=== PATIENT | female | born 1965 | race Two or more races ===

== ENCOUNTER 2016-08-24 10:55 | Emergency (ER) | payer MEDICAID, OTHER ==
[~2016-08-24] VITALS: Ht 162.6 cm; Wt 126.1 kg
[~2016-08-24 10:55] MED LIST: ATENOLOL50 MG ORAL; BENAZEPRIL HCL10 MG ORAL; CALCITRATE + V1 EACH PO; CALCIUM W/ VIT D PO; ROBAXIN500 MG PO; XANAX0.5 MG ORAL
[2016-08-24 12:03] LABS: APPEARANCE,URINE CLEAR; BASOPHILS % (AUTO) 1.7 % (0.0-2.0); EOSINOPHILS % (AUTO) 0.7 % (0.0-3.0); KETONES,URINE 3+ (NEGATIVE); LEUKOCYTE ESTERASE ,URINE NEGATIVE (NEGATIVE); LYMPHOCYTES % (AUTO) 22.6 % (20.0-45.0); MEAN CORPUSCULAR HEMOGLOBIN 31.4 PG (27.0-31.0); MEAN CORPUSCULAR HGB CONC 32.7 G/DL (32.0-36.0); MEAN CORPUSCULAR VOLUME 96 FL (80-99); MEAN PLATELET VOLUME 8.6 FL (6.5-10.1); MONOCYTES % (AUTO) 9.8 % (1.0-10.0); NEUTROPHILS % (AUTO) 65.3 % (45.0-75.0); NITRITE,URINE NEGATIVE (NEGATIVE); PH,URINE 6 (4.5-8.0); PLATELET COUNT 232 K/UL (150-450); PROTEIN,URINE NEGATIVE (NEGATIVE); RED BLOOD COUNT 5.03 M/UL (4.20-5.40); RED CELL DISTRIBUTION WIDTH 12.1 % (11.6-14.8); UROBILINOGEN,URINE NORMAL MG/DL (0.0-1.0); WHITE BLOOD COUNT 8.5 K/UL (4.8-10.8)
[2016-08-24 12:13] LABS: ALANINE AMINOTRANSFERASE 58 U/L (3-33); ALBUMIN/GLOBULIN RATIO 1.1 (1.0-2.7); ANION GAP 16 (5-15); ASPARTATE AMINO TRANSFERASE 58 U/L (5-40); CALCIUM 9.5 mg/dL (8.6-10.2); CARBON DIOXIDE 25 mEQ/L (20-30); CHLORIDE 92 mEQ/L (98-107); CREATININE 0.7 mg/dL (0.5-0.9); GLOMERULAR FILTRATION RATE > 60 mL/min (>60); HEMOLYSIS 7; POTASSIUM 4.2 mEQ/L (3.4-4.9); SODIUM 133 mEQ/L (135-145); TOTAL PROTEIN 7.7 g/dL (6.6-8.7); TROPONIN I < 0.30 ng/mL (<=0.30)
[2016-08-24 12:26] LABS: HEMOGLOBIN A1C 10.8 % (< 6.0)
[2016-08-24] MEDS ORDERED: metFORMIN 500mg tab ORAL STA (12:47)
[2016-08-24 13:10] VITALS: BP 121/49
[2016-08-24] MEDS ORDERED: METFORMIN HCL500 M1 ORAL (15:13)
[2016-08-24 15:19] VITALS: BP 121/43
[2016-08-24] MEDS ORDERED: ACCU CHEK SAFE MC (15:20)
[2016-08-24 15:22] VITALS: BP 121/43
--- NOTE | 2016-08-24 22:53 | Emergency Room Report ---
History of Present Illness General Chief Complaint: General Complaint Source: Patient Present Illness HPI Patient presents with elevated blood sugar (checked with 's machine). Recent polies. Anxious. Had been told by PMD that glucose is fine and A1C is normal within last 6 months. No chest pain, dyspnea, vomiting, diarrhea, nausea, headache. Slight change in vision with blurring. No fevers, dysuria. Treated for hypertension. Allergies: Coded Allergies: GENTAMICIN (Verified Allergy, Mild, Itching, 12/04/13) Patient History Past Medical History: see triage record Past Surgical History: other - parathyroidectomy Social History: Denies: alcohol use, smoking Social History Narrative Last Menstrual Period: irregular menstrual cycle D/C in May Now: No Reviewed Nursing Documentation: PMH: Agreed, PSxH: Agreed Nursing Documentation-PMH Past Medical History: No History, Except For Hx Hypertension: Yes Hx Cancer: No Hx Gastrointestinal Problems: Yes - gastritis History Of Psychiatric Problem: Yes - anxiety Hx Neurological Problems: Yes Hx Dizziness: Yes Review of Systems All Other Systems: negative except mentioned in HPI Physical Exam Vital Signs Date Time Temp Pulse Resp B/P Pulse Ox O2 Delivery O2 Flow Rate FiO2 08/24/16 11:06 98.8 85 14 167/79 98 Room Air Sp02 EP Interpretation: reviewed, normal General Appearance: normal inspection, alert, GCS 15, obese Head: normocephalic Eyes: bilateral eye PERRL, bilateral eye normal inspection ENT: moist mucus membranes Neck: supple Respiratory: lungs clear, normal breath sounds Cardiovascular #1: regular rate, rhythm, no edema Cardiovascular #2: 2+ radial (R) Gastrointestinal: non tender, soft, overweight Musculoskeletal: gait/station normal, normal range of motion, no calf tenderness, pelvis stable Neurologic: alert, oriented x3 - grossly normal neuro Psychiatric: anxious Skin: normal inspection, warm/dry Medical Decision Making Diagnostic Impression: Primary Impression: Diabetes mellitus, new onset Additional Impression: Obesity Qualified Codes: E66.9 - Obesity, unspecified ER Course The patient presents with hyperglycemia. Differential includes onset diabetes, occult infection, diabetic ketoacidosis. Patient has normal mentation at this time and denies any abdominal symptomatology. She is overweight. Evaluation with electrolytes, EKG, chest x-ray is undertaken. In addition Accu-Chek is high at this time and we need to start IV hydration.2 tabs TID X 2 days, 1 tab TID X 2 days, 1 tab BID X 2 days, 1 tab QD X 2 days the results of laboratory that she needs to be admitted. Glucose is elevated. We need to repeat this after the fluid bolus. He was better and metformin is started. The patient is not in diabetic ketoacidosis that time. Discussion about starting treatment, checking blood sugars and cautioned about hypoglycemia were discussed with the patient. He understands as her has diabetes. Also we discussed probably loss would have a significant impact on her insulin requirements. Discussed diabetic diet also. The patient is stable for outpatient observation and treatment. Laboratory Tests Test 08/24/16 11:40 White Blood Count 8.5 K/UL (4.8-10.8) Red Blood Count 5.03 M/UL (4.20-5.40) Hemoglobin 15.8 G/DL (12.0-16.0) Hematocrit 48.2 % (37.0-47.0) H Mean Corpuscular Volume 96 FL (80-99) Mean Corpuscular Hemoglobin 31.4 PG (27.0-31.0) H Mean Corpuscular Hemoglobin Concent 32.7 G/DL (32.0-36.0) Red Cell Distribution Width 12.1 % (11.6-14.8) Platelet Count 232 K/UL (150-450) Mean Platelet Volume 8.6 FL (6.5-10.1) Neutrophils (%) (Auto) 65.3 % (45.0-75.0) Lymphocytes (%) (Auto) 22.6 % (20.0-45.0) Monocytes (%) (Auto) 9.8 % (1.0-10.0) Eosinophils (%) (Auto) 0.7 % (0.0-3.0) Basophils (%) (Auto) 1.7 % (0.0-2.0) Urine Color Pale yellow Urine Appearance Clear Urine pH 6 (4.5-8.0) Urine Specific [place] 1.010 (1.005-1.035) Urine Protein Negative (NEGATIVE) Urine Glucose (UA) 4+ (NEGATIVE) H Urine Ketones 3+ (NEGATIVE) H Urine Occult Blood Negative (NEGATIVE) Urine Nitrite Negative (NEGATIVE) Urine Bilirubin Negative (NEGATIVE) Urine Urobilinogen Normal MG/DL (0.0-1.0) Urine Leukocyte Esterase Negative (NEGATIVE) Sodium Level 133 mEQ/L (135-145) L Potassium Level 4.2 mEQ/L (3.4-4.9) Chloride Level 92 mEQ/L (98-107) L Carbon Dioxide Level 25 mEQ/L (20-30) Anion Gap 16 (5-15) H Blood Urea Nitrogen 10 mg/dL (7-23) Creatinine 0.7 mg/dL (0.5-0.9) Estimate Glomerular Filtration Rate > 60 mL/min (>60) Glucose Level 393 mg/dL (74-106) H Hemoglobin A1c 10.8 % (< 6.0) H Calcium Level 9.5 mg/dL (8.6-10.2) Total Bilirubin 0.4 mg/dL (0.0-1.2) Aspartate Amino Transferase (AST) 58 U/L (5-40) H Alanine Aminotransferase (ALT) 58 U/L (3-33) H Alkaline Phosphatase 97 U/L (35-104) Total Creatine Kinase 134 U/L (26-140) Troponin I < 0.30 ng/mL (<=0.30) Total Protein 7.7 g/dL (6.6-8.7) Albumin 4.1 g/dL (3.5-5.2) Globulin 3.6 g/dL Albumin/Globulin Ratio 1.1 (1.0-2.7) EKG Diagnostic Results Rate: normal Rhythm: NSR ST Segments: no acute changes Rhythm Strip Diag. Results EP Interpretation: yes Rhythm: NSR, no PVC's, no ectopy, other Last Vital Signs Date Time Temp Pulse Resp B/P Pulse Ox O2 Delivery O2 Flow Rate FiO2 08/24/16 15:22 98.8 79 14 121/43 98 Room Air Status: improved Disposition: HOME, SELF-CARE Condition: Improved Scripts Lancets (ACCU-CHEK SAFE-T-PRO) 1 Each Each 1 EACH MC DAILY Y for also if weak and dizzy, #1 Prov: Cruz Guzman M.D. 08/24/16 Metformin Hcl* (METFORMIN HCL*) 500 Mg Tablet 500 MG ORAL TWICE A DAY, #60 TAB Prov: Cruz Guzman M.D. 08/24/16 Patient Instructions: Hyperglycemia Additional Instructions: Bony santos in 2-3 saba. Cruz Guzman M.D. Aug 24, 2016 22:53
--- NOTE | 2016-08-25 13:16 | Diagnostic Imaging Report ---
Indication: Chest Pain Comparison: 08/05/14 A single view chest radiograph was obtained. Findings: Cardiomediastinal appearance is within normal limits for age. Pulmonary vascularity is appropriate. The diaphragmatic contour is smooth and costophrenic angles are sharp. No pleural effusions are identified. The bones are unremarkable. Impression: No acute findings
--- NOTE | 2016-08-26 15:19 | Cardiology Report ---
APPROVED REPORT EKG Measurement Heart [id number] OR [id number] Normal sinus rhythm Normal ECG
== END 2016-08-24 15:27 | disposition home or self-care (01) ==
LOC: EMR 11:16
DX: E11.9 Type 2 diabetes mellitus without complications (principal); E66.9 Obesity, unspecified; Z68.42 Body mass index [BMI] 45.0-49.9, adult; F41.9 Anxiety disorder, unspecified; I10 Essential (primary) hypertension; Z88.1 Allergy status to other antibiotic agents
CPT/HCPCS: 36415; 71010; 80053; 81003; 82550; 82962; 83036; 84484; 85025; 93005; 96360; 96361